=== PATIENT | female | born 1980 | race Caucasian/White ===

== ENCOUNTER 2017-01-25 08:54 | Emergency (ER) | payer BC ==
[2017-01-25 08:35] LABS: ASCORBIC ACID (UR NOT ORDER) NEG (NEG); BILIRUBIN, URINE NEGATIVE (NEG); ER URINALYSIS TAT 0 Hrs 11 Mins; KETONE, URINE TRACE MG/DL (NEG); LEUKOCYTE ESTERASE(NOT OR NEG (NEG); NITRITE (URINE) NEG (NEG); WBC (NOT ORDERED) (RFLEX) 3 (0-5)
[~2017-01-25 08:54] MED LIST: LORTAB 5 PO; METHOC500B PO; NEUR300 PO; VOLT75 PO
[2017-06-24] MEDS ORDERED: *DENIES (15:19)
== END 2017-01-25 11:12 | disposition home or self-care (01) ==
LOC: ER 08:54
PROVIDERS: Nurse Practitioner Family
DX: M54.42 Lumbago with sciatica, left side (principal); F17.200 Nicotine dependence, unspecified, uncomplicated; Z79.899 Other long term (current) drug therapy
CPT/HCPCS: 72020; 81001; 84703; 96372; 99284; A9270-GY

== ENCOUNTER 2017-01-28 14:25 | Observation (INO) | payer BC ==
--- NOTE | ~2017-01-28 | OP ---
Record Of Operation [facility] [address] [place] [address] NAME: CATHY BARTLETT : 82 STATUS : DIS IN PAT#: [id number] AGE: 36 ADM/REG DATE : 01/28/17 MR#: [id number] REPORT SERV DATE: 01/29/17 DICTATED BY: ORTEGA COOK DATE: 01/29/17 REPORT STATUS : Draft TRANSCRIBED BY: MODL DATE: 01/29/17 DATE OF PROCEDURE: 01/29/2017 PREOPERATIVE DIAGNOSIS: Massive recurrent HNP, central left L5-S1 with intractable S1 radiculopathy. POSTOPERATIVE DIAGNOSIS: Massive recurrent HNP, central left L5-S1 with intractable S1 radiculopathy. PROCEDURES: 1. Microscopic and navigation-assisted surgery. 2. Left L5-S1 hemilaminotomy, foraminotomy, and microdiskectomy. SURGEON: Ortega Cook D.O. DESIGN DIRECTOR: Gabriel Michel. ANESTHESIA: General. BLOOD LOSS: 10 mL. INDICATIONS FOR SURGERY: A 36-year-old female, who was in my office yesterday afternoon actually in agony. The patient's pain was 10/10. She was in a wheelchair and could not even stand or walk three steps because the pain was so severe with any attempted weightbearing. The patient gave a history of having a previous surgery by Dr. Rowan Evans with a diskectomy at that time, relieving her leg pain very nicely and she returned to normal activities. She has several small children at home and is very active and has been able to continue all that, but two weeks ago noted a sudden severe return of the pain. It is so severe she just cannot function. The patient's PCP has been contacted and the patient also has had an MRI with the MRI showing a very large central and left-sided HNP, which is a recurrent HNP and is causing significant impingement on the S1 nerve root. The patient was in such intractable pain. I did not feel it was appropriate to try to continue with any conservative care, as she is 10/10 and could not stand and walk. She had significant numbness and tingling in her leg and some weakness. I then sent her to the hospital with observation status, IV pain medication, now brought to surgery for the above procedure. Prior to surgery, risks, benefits, alternatives, and expectations explained. Consent form is signed. Prior to surgery, I did go over extensively the risks and I have expressively emphasized the chances of recurrent herniation and the need for arthrodesis in the future and also explained to her the risk of infection, nerve injury, weakness in the legs, but she does not have now, she could have weakness, numbness, tingling, weakness, paralysis even. There could always be an incidental durotomy, subsequent meningitis, arachnoiditis, or need for surgical drain and repair. After some consideration, the patient has agreed to proceed with surgery. Record Of Operation [facility] [address] [place]. [address] NAME: CATHY BARTLETT : 82 STATUS : DIS IN PAT#: [id number] AGE: 36 ADM/REG DATE : 01/28/17 MR#: [id number] REPORT SERV DATE: 01/29/17 DICTATED BY: ORTEGA COOK DATE: 01/29/17 REPORT STATUS : Draft TRANSCRIBED BY: BLAINE DATE: 01/29/17 DESCRIPTION OF PROCEDURE: The patient was given antibiotic prophylaxis and she was brought to the operative suite. General anesthetic including endotracheal intubation was administered. Younger catheter was placed. She was placed prone on a Cristofer spine frame. Bony prominences were carefully padded. Thoracolumbar spine scrubbed with Hibiclens solution. DuraPrep was painted. Sterile drapes applied. Again, because of the complexity of surgery and the need to identify correct level of surgery intraoperatively as well as desire to carry out the safest and most precise dissection, I felt intraoperative navigation was mandatory. A small stab wound was carried out over the right posterior superior iliac spine. A percutaneous pin with navigational frame attached was inserted in PSIS. Intraoperative CT scan with O-arm obtained. CT information used to register the navigational system. With navigational assistance, I identified the left side of L5-S1. With navigational assistance, I could see that there had been a rather marked wide laminectomy and 90% partial facetectomy from prior surgery. With this in mind, I entered low over the lamina of S1. A blunt navigated probe placed through the fascia muscle and docked over this area. Muscle dilators were inserted followed by placement of a tubular retractor attached to an arm mount on the table. The microscope was sterilely draped and used throughout the remainder of the procedure. With navigational assistance and guidance, I started slightly lateral and identified the medial edge of the bone of the facet joint. The lamina was completely gone. The inferior articular process of L5 was completely gone. After identifying the medial edge of the facet joint of S1, I carefully dissected proximal. I took away some of the medial facet of the superior articular process of S1. I then mobilized the epidural fibrosis. The disk herniation was localized. The diskectomy was completed with rongeurs. After the diskectomy, the thecal sac and the nerve were free of compression. The wound was irrigated. Obviously, the patient is at high risk of developing some spondylolisthesis due to the fact she has had such large diskectomies and she is missing the articular process of L5 on the left. After final irrigation, the retractor was removed. No bleeding was noted. The fascial opening closed with a single interrupted #1 Vicryl suture. The subcutaneous tissue closed with 2-0 Vicryl sutures, 2-0 vertical mattress nylon suture used for skin closure. Sterile dressings applied. The patient was awakened, extubated, and taken to recovery room in satisfactory condition having tolerated the procedure well. /BLAINE Ortega Cook D.O. Record Of Operation [address] [place]. [address] NAME: CATHY BARTLETT : 82 STATUS : DIS IN PAT#: [id number] AGE: 36 ADM/REG DATE : 01/28/17 MR#: [id number] REPORT SERV DATE: 01/29/17 DICTATED BY: ORTEGA COOK DATE: 01/29/17 REPORT STATUS : Draft TRANSCRIBED BY: MODL DATE: 01/29/17 / [id number] CC: Abdirashid Leslie M.D.
[2017-01-28] MEDS ORDERED: FLEX PO (15:15)
[2017-01-28] MEDS ORDERED: NORCO1 TA1 PO (15:15)
[2017-01-28] MEDS ORDERED: TUMSROLL PO (15:16)
[2017-01-28] MEDS ORDERED: MEDROLPAK4 PO (15:16)
[2017-01-28] MEDS ORDERED: ICYHOT TOP (15:16)
[2017-01-28] MEDS ORDERED: MOTRIN IB200 MG PO (15:16)
[2017-01-28] MEDS ORDERED: TEARS PLUS OPH (15:17)
[2017-01-29] MEDS ORDERED: ANAPROX PO (12:13)
[2017-01-29] MEDS ORDERED: METHOC500B PO (12:14)
[2017-01-29] MEDS ORDERED: OXYCOD PO (12:14)
[2017-06-24] MEDS ORDERED: *DENIES (15:19)
== END 2017-01-29 13:45 | disposition home or self-care (01) ==
LOC: 3SO 14:25
PROVIDERS: Orthopaedic Surgery Orthopaedic Surgery of the Spine
PROC: 0SB20ZZ Excision of Lumbar Vertebral Disc, Open Approach (ICD-10-PCS; principal; 2017-01-29 05:45)
PROC: 01NB0ZZ Release Lumbar Nerve, Open Approach (ICD-10-PCS; 2017-01-29 05:45)
DX: M54.17 Radiculopathy, lumbosacral region (principal); M51.26 Other intervertebral disc displacement, lumbar region
CPT/HCPCS: 84703; 88304; 96374; 96375; A9270-GY; G0378; J0690; J1885; J2250; J2274; J2405; J2710; J3010